=== PATIENT | male | born 1975 | race Caucasian/White ===

== ENCOUNTER 2017-08-10 18:37 | Emergency (ER) | payer OTHER ==
[~2017-08-10] VITALS: Ht 182.9 cm; Wt 148.8 kg
[2017-08-10 18:42] VITALS: Ht 182.9 cm; Wt 148.8 kg
[2017-08-10 19:36] VITALS: BP 126/83
== END 2017-08-10 19:36 | disposition home or self-care (01) ==
LOC: ED 18:37
DX: S39.012A Strain of muscle, fascia and tendon of lower back, initial encounter (principal); I10 Essential (primary) hypertension; V89.2XXA Person injured in unspecified motor-vehicle accident, traffic, initial encounter; Y93.89 Activity, other specified; Y92.89 Other specified places as the place of occurrence of the external cause; Y99.8 Other external cause status
CPT/HCPCS: J1885

== ENCOUNTER 2019-03-19 12:01 | Emergency (ER) | payer OTHER ==
[~2019-03-19] VITALS: Ht 182.9 cm; Wt 171.9 kg
[2019-03-19 12:19] VITALS: Ht 182.9 cm; Wt 171.9 kg
[2019-03-19 15:00] LABS: BASOPHIL % 0.6 % (0-2); PLATELET COUNT 223 x10^3mcL (130-400); RED CELL DISTRIBUTION WIDTH 13.3 % (11.5-14.5)
[2019-03-19 15:09] LABS: CALCIUM 8.8 mg/dL (8.5-10.1); CARBON DIOXIDE 28.5 mmol/L (21-32); CHLORIDE SERUM 104 mmol/L (98-107); CREATININE SERUM 1.1 mg/dL (0.7-1.3); GFR1 > 60 mL/min; GLUCOSE SERUM 85 mg/dL (74-106); POTASSIUM SERUM 3.8 mmol/L (3.5-5.1); SODIUM SERUM 139 mmol/L (136-145)
[2019-03-19 15:13] LABS: ALBUMIN 3.7 g/dL (3.4-5.0); ALKALINE PHOSPHATASE 103 U/L (46-116); ALT/SGPT 41 U/L (16-63); AST/SGOT 29 U/L (15-37); BILIRUBIN TOTAL 0.6 mg/dL (0.20-1.00); LIPASE 82 IU/L (73-393); MAGNESIUM 2.2 mg/dL (1.8-2.4); TOTAL PROTEIN, SERUM 7.6 g/dL (6.4-8.2)
[2019-03-19 16:13] LABS: microscopic required? NO
[2019-03-19 16:25] LABS: UA SPECIFIC GRAVITY 1.015 (1.005-1.035); urine erythrocyte NEGATIVE (NEGATIVE)
[2019-03-19 17:58] VITALS: BP 158/98
== END 2019-03-19 17:50 | disposition home or self-care (01) ==
LOC: ED 12:01
PROVIDERS: Emergency Medicine; Specialist
DX: R10.11 Right upper quadrant pain (principal); K21.9 Gastro-esophageal reflux disease without esophagitis; I10 Essential (primary) hypertension
CPT/HCPCS: 36415; J1885; Q0092